=== PATIENT | female | born 1990 | race Caucasian/White ===

== ENCOUNTER 2020-05-12 19:07 | Observation (INO) | payer OTHER ==
[~2020-05-12] VITALS: Ht 162.6 cm; Wt 88.5 kg
[2020-05-12] MEDS ORDERED: PRETAB PO (19:47)
[2020-05-12 20:13] LABS: APPEARANCE,URINE CLEAR (CLEAR); BILIRUBIN,URINE NEGATIVE (NEGATIVE); BLOOD, URINE NEGATIVE (NEGATIVE); COLOR,URINE YELLOW (YELLOW); LEUKOCYTE ESTERASE ,URINE 1+ (NEGATIVE); NITRITE, URINE NEGATIVE (NEGATIVE); UGLUCOSE NEGATIVE (NEGATIVE)
[2020-05-12 20:25] LABS: RBC,URINE NONE SEEN /HPF (0-5)
[2020-05-12 20:26] LABS: WBC,URINE 0-5 /HPF (0-5)
[2020-05-12 21:04] VITALS: BP 112/70
== END 2020-05-12 20:36 | disposition home or self-care (01) ==
LOC: MLD 19:07
PROVIDERS: ADMIT Obstetrics & Gynecology; ATTEND Obstetrics & Gynecology
DX: O26.893 Other specified pregnancy related conditions, third trimester (principal); R10.30 Lower abdominal pain, unspecified; Z3A.37 37 weeks gestation of pregnancy
CPT/HCPCS: 59025; 81001; 87086; G0378

== ENCOUNTER 2020-09-07 06:10 | Day surgery (SDC) | payer OTHER ==
[~2020-09-07] VITALS: Ht 165.1 cm; Wt 84.4 kg
[~2020-09-07 06:10] MED LIST: PRETAB PO
[2020-09-07] MEDS ORDERED: BUPIVACAINE-MPF/EPI 0.25% 30 ML VIAL INJ ONE (07:05)
[2020-09-07] MEDS ORDERED: PROPOFOL 200 MG/20 ML VIAL IV ONE (07:30)
[2020-09-07] MEDS ORDERED: SUGAMMADEX SODIUM 200 MG/2 ML VIAL IV ONE (07:30)
[2020-09-07] MEDS ORDERED: DEXAMETHASONE 4 MG/ML VIAL ONE (07:30)
[2020-09-07] MEDS ORDERED: ONDANSETRON 4 MG/2 ML VIAL ONE (07:30)
[2020-09-07] MEDS ORDERED: fentaNYL citrate 0.05 MG/ML VIAL ONE (07:30)
[2020-09-07] MEDS ORDERED: ROCURONIUM 50 MG/5 ML VIAL IV ONE (07:30)
[2020-09-07] MEDS ORDERED: SEVOFLURANE 250 ML BTL INH ONE (07:30)
[2020-09-07] MEDS ORDERED: SUCCINYLCHOLINE CHLORIDE 200 MG/10 ML VIAL IVP ONE (07:30)
[2020-09-07] MEDS ORDERED: MIDAZOLAM 2 MG/2 ML VIAL ONE (07:30)
[2020-09-07] MEDS ORDERED: MEPERIDINE 25 MG/ML SYR ONE (07:30)
[2020-09-07] MEDS: HYDROmorphone 1 MG/ML AMP IVP PRN ×4 (08:05→08:35)
[2020-09-07] MEDS ORDERED: HYDROmorphone PFS 2 MG/ML SYR ONE (08:33)
[2020-09-07] MEDS ORDERED: KETOROLAC 60 MG/2 ML VIAL IM ONE (08:48)
[2020-09-07] MEDS ORDERED: ONDANSETRON 4 MG/2 ML VIAL IVP PRN ×2 (08:50→10:40)
[2020-09-07] MEDS ORDERED: diphenhydrAMINE 50 MG/ML VIAL IVP PRN (08:50)
[2020-09-07] MEDS ORDERED: LACTATED RINGERS 1,000 ML IV SCH (08:50)
[2020-09-07] MEDS ORDERED: MEPERIDINE 25 MG/ML SYR IVP PRN (08:50)
[2020-09-07] MEDS ORDERED: KETOROLAC 30 MG/ML VIAL IVP SCH (12:00)
== END 2020-09-07 12:04 | disposition home or self-care (01) ==
LOC: MDS 06:10 → MMU 06:13 → MDS 12:04
PROVIDERS: ATTEND Obstetrics & Gynecology
DX: Z30.2 Encounter for sterilization (principal); E66.9 Obesity, unspecified
CPT/HCPCS: 58661; 81025; 87426; 88302; J0330; J1100; J1170; J1885; J2175; J2250; J2405; J2704; J3010; J3490; J7120